=== PATIENT | female | born 1985 | race African-American/Black ===

== ENCOUNTER → 2017-10-10 | Outpatient (CLI) | payer OTHER ==
[2015-01-19 12:45] VITALS: BP 107/68
[~2017-10-10] MED LIST: DOXY100C2 PO; IBUP200T44 PO; ONDA4TAB10 SL
--- NOTE | 2017-10-10 16:01 | RAD ---
Abdomen, 2 views, 10/10/2017: History: Left-sided abdominal pain There is gas and stool scattered throughout the colon in a nonspecific pattern. No free air is seen in the abdomen. There is no evidence of organomegaly or abnormal abdominal calcification. IMPRESSION: No acute abdominal abnormality is detected.
== END | disposition home or self-care (01) ==
LOC: PMG 10:51
PROVIDERS: ATTEND Physician Assistant
DX: R10.32 Left lower quadrant pain (principal)
CPT/HCPCS: 74021

== ENCOUNTER → 2017-10-24 | Outpatient (CLI) | payer OTHER ==
[2015-01-19 12:45] VITALS: BP 107/68
--- NOTE | 2017-10-24 09:54 | RAD ---
Transabdominal and transvaginal sonography of the pelvis History: Intermittent left lower quadrant pain for 3 years. Transabdominal sonography: The uterus is anteverted in position. The longitudinal and AP and transverse dimensions of the uterus are 10.9 cm and 4.8 cm and 7.7 cm respectively. The endometrial canal is poorly visualized. Therefore, transvaginal sonography will be performed. The left ovary measures 1.8 cm and 2.8 cm and 3.2 cm in size and is normal. Color Doppler flow is seen within the left ovary. The right ovary measures 1.5 cm and 2.4 cm and 1.9 cm in size and is normal. No adnexal mass or free fluid is seen. Transvaginal sonography: No uterine mass or fibroid is seen. The endometrial canal measures 8 mm in thickness which is normal. The left ovary contains a 13 mm follicular cyst and is normal. The right ovary is normal. Color Doppler flow is seen within the right ovary. No adnexal mass or free fluid is evident. IMPRESSION: Normal pelvic sonogram.
== END | disposition home or self-care (01) ==
LOC: US 07:47
PROVIDERS: ATTEND Physician Assistant
DX: R10.32 Left lower quadrant pain (principal)
CPT/HCPCS: 76830; 76856

== ENCOUNTER 2020-12-02 17:30 | Emergency (ER) | payer BC, OTHER ==
[~2020-12-02] VITALS: Ht 170.2 cm; Wt 75.9 kg
[2020-12-02] MEDS ORDERED: IV NORMAL SALINE 1,000ML 1,000 ML IV ONE (18:00)
[2020-12-02 18:33] LABS: BARBITURATES NEG (NEG); BENZODIAZEPINES NEG (NEG); CANNABINOIDS NEG (NEG); COCAINE NEG (NEG); METHADONE NEG (NEG); OPIATES NEG (NEG); PHENCYCLIDINE NEG (NEG)
[2020-12-02 18:37] LABS: BASO % 1 % (0-3); EOS # 0.1 x10^3/uL (0.0-0.7); EOS % 1 % (0-3); HEMATOCRIT 36.9 % (36.0-47.0); HEMOGLOBIN 12.1 g/dL (12.0-15.5); LYMPH # 2.5 x10^3/uL (1.0-4.8); LYMPH % 46 % (24-48); MEAN CORPUSCULAR HEMOGLOBIN 28 pg (25-35); MEAN CORPUSCULAR HGB CONC 33 g/dL (31-37); MEAN CORPUSCULAR VOLUME 86 fL (79-100); MONO # 0.5 x10^3/uL (0.0-1.1); MONO % 9 % (0-9); NEUT # 2.3 x10^3uL (1.8-7.7); NEUT % 43 % (31-73); PLATELET COUNT 210 x10^3/uL (140-400); RED BLOOD COUNT 4.28 x10^6/uL (3.50-5.40); RED CELL DISTRIBUTION WIDTH 13.2 % (11.5-14.5); WHITE BLOOD COUNT 5.4 x10^3/uL (4.0-11.0)
[2020-12-02 18:37] LABS: BILIRUBIN,URINE NEG (NEG); CLARITY,URINE CLEAR; COLOR,URINE YELLOW; GLUCOSE,URINE NEG (NEG); NITRITE,URINE NEG (NEG); UROBILINOGEN,URINE 0.2 mg/dL (0.2 mg/dL)
[2020-12-02 18:38] LABS: BACTERIA,URINE 0 /HPF (0-FEW); WBC,URINE 0 /HPF (0-4)
[2020-12-02 18:39] LABS: AMPHETAMINE/METHAMPHETAMINE NEG (NEG)
[2020-12-02 18:45] LABS: CALCIUM 9.5 mg/dL (8.5-10.1); CREATININE 0.9 mg/dL (0.6-1.0); GFR 87.3
[2020-12-02 18:47] LABS: ALBUMIN 4.1 g/dL (3.4-5.0); ALBUMIN/GLOBULIN RATIO 1.1 (1.0-1.7); MAGNESIUM 1.9 mg/dL (1.8-2.4); PHOSPHORUS 3.4 mg/dL (2.6-4.7); TOTAL BILIRUBIN 0.2 mg/dL (0.2-1.0); TOTAL PROTEIN 7.7 g/dL (6.4-8.2)
[2020-12-02 19:17] VITALS: BP 127/68
--- NOTE | 2020-12-02 19:24 | PHYS DOC ---
Past History Past Medical History: No Pertinent History, Other (SHERRY PACK APRN) Past Surgical History: Other (SHERRY PACK APRN) Alcohol Use: None Drug Use: None, Marijuana (SHERRY PACK APRN) Adult General Chief Complaint Chief Complaint: Palpitations HPI HPI Patient is a 35-year-old female who presents to the emergency department complaining of feeling her heart fluttering been going on all day. Patient denies any chest pains, shortness of breath, congestion, fever or chills, cough, abdominal pain, nausea, vomiting, diarrhea. Patient denies any visual changes or headaches. Patient denies any allergies to medications, does not take any medications at home, states her last menstrual cycle ended yesterday with normal duration of flow. (SHERRY PACK APRN) Review of Systems Review of Systems 14 body systems of review of systems have been reviewed. See HPI for pertinent positives and negative responses, otherwise all other systems are negative, nonpertinent or noncontributory. (SHERRY PACK APRN) Current Medications Current Medications Current Medications Medications (Trade) Dose Ordered Sig/Dary Start Time Stop Time Status Last Admin Dose Admin Sodium Chloride 1,000 ml @ 1,000 mls/hr 1X ONCE 12/02/20 18:00 12/02/20 18:59 DC 12/02/20 18:00 1,000 MLS/HR (SHERRY PACK APRN) Allergies Allergies Allergies Coded Allergies Type Severity Reaction Last Updated Verified No Known Drug Allergies 06/27/14 No (SHERRY PACK APRN) Physical Exam Physical Exam Constitutional: Well developed, well nourished, no acute distress, non-toxic appearance. 35-year-old female in no apparent distress. HENT: Normocephalic, atraumatic, bilateral external ears normal, oropharynx moist, no oral exudates, nose normal. Oropharynx moist, pink, no infectious process appreciated, no uvular edema, no laryngeal edema appreciated, no lymphadenopathy of the head or neck appreciated. Eyes: PERRLA, EOMI, conjunctiva normal, no discharge. Neck: Normal range of motion, no tenderness, supple, no stridor. No meningismus signs, no nuchal rigidity appreciated. Cardiovascular:Heart rate regular rhythm, no murmur, heart sounds S1-S2 to auscultation. During physical exam the patient was attached to 5-lead cardiac cath rn, it was noted patient had occasional PVCs during this time, patient would state "there it is "when a PVC would happen. Otherwise the patient did not complain of heart fluttering. Lungs & Thorax: Bilateral breath sounds clear to auscultation all lung spring, no adventitious lung sounds appreciated. Abdomen: Bowel sounds normal, soft, no tenderness, no masses, no pulsatile masses. Skin: Warm, dry, no erythema, no rash. Back: No tenderness, no CVA tenderness. Extremities: No tenderness, no cyanosis, no clubbing, ROM intact, no edema. Neurologic: Alert and oriented X 3, normal motor function, normal sensory function, no focal deficits noted. Psychologic: Affect normal, judgement normal, mood normal. (SHERRY PACK APRN) Current Patient Data Vital Signs Vital Signs Date Time Temp Pulse Resp B/P (MAP) Pulse Ox O2 Delivery O2 Flow Rate FiO2 12/02/20 17:36 97.8 86 16 132/84 (100) 100 Room Air Lab Results Laboratory Tests Test 12/02/20 17:56 12/02/20 18:02 White Blood Count 5.4 x10^3/uL (4.0-11.0) Red Blood Count 4.28 x10^6/uL (3.50-5.40) Hemoglobin 12.1 g/dL (12.0-15.5) Hematocrit 36.9 % (36.0-47.0) Mean Corpuscular Volume 86 fL (79-100) Mean Corpuscular Hemoglobin 28 pg (25-35) Mean Corpuscular Hemoglobin Concent 33 g/dL (31-37) Red Cell Distribution Width 13.2 % (11.5-14.5) Platelet Count 210 x10^3/uL (140-400) Neutrophils (%) (Auto) 43 % (31-73) Lymphocytes (%) (Auto) 46 % (24-48) Monocytes (%) (Auto) 9 % (0-9) Eosinophils (%) (Auto) 1 % (0-3) Basophils (%) (Auto) 1 % (0-3) Neutrophils # (Auto) 2.3 x10^3uL (1.8-7.7) Lymphocytes # (Auto) 2.5 x10^3/uL (1.0-4.8) Monocytes # (Auto) 0.5 x10^3/uL (0.0-1.1) Eosinophils # (Auto) 0.1 x10^3/uL (0.0-0.7) Basophils # (Auto) 0.0 x10^3/uL (0.0-0.2) Sodium Level 141 mmol/L (136-145) Potassium Level 4.0 mmol/L (3.5-5.1) Chloride Level 105 mmol/L (98-107) Carbon Dioxide Level 27 mmol/L (21-32) Anion Gap 9 (6-14) Blood Urea Nitrogen 19 mg/dL (7-20) Creatinine 0.9 mg/dL (0.6-1.0) Estimated GFR (Cockcroft-Gault) 87.3 BUN/Creatinine Ratio 21 (6-20) H Glucose Level 94 mg/dL (70-99) Calcium Level 9.5 mg/dL (8.5-10.1) Phosphorus Level 3.4 mg/dL (2.6-4.7) Magnesium Level 1.9 mg/dL (1.8-2.4) Total Bilirubin 0.2 mg/dL (0.2-1.0) Aspartate Amino Transferase (AST) 25 U/L (15-37) Alanine Aminotransferase (ALT) 32 U/L (14-59) Alkaline Phosphatase 44 U/L (46-116) L Troponin I Quantitative < 0.017 ng/mL (0-0.055) Total Protein 7.7 g/dL (6.4-8.2) Albumin 4.1 g/dL (3.4-5.0) Albumin/Globulin Ratio 1.1 (1.0-1.7) Urine Collection Type Unknown Urine Color Yellow Urine Clarity Clear Urine pH 6.0 Urine Specific [place] >=1.030 Urine Protein Neg (NEG-TRACE) Urine Glucose (UA) Neg mg/dL (NEG) Urine Ketones (Stick) Trace mg/dL (NEG) Urine Blood Mod (NEG) Urine Nitrite Neg (NEG) Urine Bilirubin Neg (NEG) Urine Urobilinogen Dipstick 0.2 mg/dL (0.2 mg/dL) Urine Leukocyte Esterase Neg (NEG) Urine RBC 6-10 /HPF (0-2) Urine WBC 0 /HPF (0-4) Urine Squamous Epithelial Cells None /LPF Urine Bacteria 0 /HPF (0-FEW) Urine Opiates Screen Neg (NEG) Urine Methadone Screen Neg (NEG) Urine Barbiturates Neg (NEG) Urine Phencyclidine Screen Neg (NEG) Urine Amphetamine/Methamphetamine Neg (NEG) Urine Benzodiazepines Screen Neg (NEG) Urine Cocaine Screen Neg (NEG) Urine Cannabinoids Screen Neg (NEG) Urine Ethyl Alcohol Neg (NEG) (SHERRY PACK APRN) EKG EKG EKG performed at 1735 by house respiratory therapy staff shows a normal sinus rhythm without ectopy, heart rate 97 bpm, [place] interval 0.136, QTc interval 0.441, no STEMI, ACS, or acute ischemia appreciated, EKG interpreted by ED attending physician Dr. Bueno. (SHERRY PACK APRN) Radiology/Procedures Radiology/Procedures [] (SHERRY PACK APRN) Heart Score C/O Chest Pain: No Risk Factors: Risk Factors: DM, Current or recent (<one month) smoker, HTN, HLP, family history of CAD, obesity. Risk Scores: Risk Factors: DM, Current or recent (<one month) smoker, HTN, HLP, family history of CAD, obesity. (SHERRY PACK APRN) Course & Med Decision Making Course & Med Decision Making Pertinent Labs and Imaging studies reviewed. (See chart for details) 35-year-old female, vital signs reviewed, presents emergency department concerning heart fluttering. Patient's physical examination was unremarkable, will perform EKG, troponin lab, CBC, BMP, urinalysis assay, urine drug screen. Patient's labs were unremarkable, EKG was unremarkable, it was noted during EKG monitoring of patient, patient would feel this fluttering sensation when a PVC would exacerbate. Patient had occasional rare PVCs. Discussed findings with patient, follow-up with primary care for ongoing investigation of her PVCs. Patient gave verbal understanding of discharge home instructions, follow-up with primary care soon, return to ER precautions or concerns, patient felt comfortable going home and was discharged to home without incident. (SHERRY PACK APRN) Dragon Disclaimer Dragon Disclaimer This electronic medical record was generated, in whole or in part, using a voice recognition dictation system. (SHERRY PACK APRN) Attending Co-Sign The chart was reviewed. The case was discussed. Agree with the plan of care. (GHASSAN BUENO DO) Departure Departure: Impression: Primary Impression: Periodic heart flutter Disposition: 01 HOME / SELF CARE / HOMELESS Condition: GOOD Referrals: VANESSA AMBRIZ (PCP) Additional Instructions: We have discussed your heart fluttering, please follow-up with YOSI Flores for ongoing investigation of your premature ventricular contractions. We have discussed at length about premature ventricular contractions, often they are benign, but you should follow-up with your primary care provider and discuss possible cardiology consult. Please return to the emergency department for worsening symptoms or other concerns. EMERGENCY DEPARTMENT GENERAL DISCHARGE INSTRUCTIONS Thank you for coming to [facility] (ED) today and trusting us with you care. We trust that you had a positivie experience in our Emergency Department. If you wish to speak to the department management, you may call the director at [phone]. YOUR FOLLOW UP INSTRUCTIONS ARE FOLLOWS: 1. Do you have a private Doctor? If you do not have a private doctor, please ask for a resource list of physicians or clinics that may be able to assist you with follow up care. 2. The Emergency Physician has interpreted your x-rays. The X-Ray specialist will also review them. If there is a change in the findings, you will be notified in 48 hours when at all possible. 3. A lab test or culture has been done, your results will be reviewed and you will be notified if you need a change in treatment. ADDITIONAL INSTRUCTIONS AND INFORMATION: 1. Your care today has been supervised by a physician who is specially trained in emergency care. Many problems require more than one evaluation for a complete diagnosis and treatment. We recommend that you schedule your follow up appointment as recommended to ensure complete treatment of you illness or injury. If you are unable to obtain follow up care and continue to have a problem, or if your condition worsens, we recommend that you return to the ED. 2. We are not able to safely determine your condition over the phone nor are we able to give sound medical advice over the phone. For these safety reasons, if you call for medical advice we will ask you to come to the ED for further evaluation. 3. If you have any questions regarding these discharge instructions please call the ED at [phone]. SAFETY INFORMATION: In the interest of safety, wellness, and injury prevention; we encourage you to wear your sealbelt, if you smoke; quite smoking, and we encourage family to use a pr otective helmet for bicycling and other sporting events that present an increased risk for head injury. IF YOUR SYMPTOMS WORSEN OR NEW SYMPTOMS DEVELOP, OR YOU HAVE CONCERNS ABOUT YOUR CONDITION; OR IF YOUR CONDITION WORSENS WHILE YOU ARE WAITING FOR YOUR FOLLOW UP APPOINTMENT; EITHER CONTACT YOUR PRIMARY CARE DOCTOR, THE PHYSICIAN WHOSE NAME AND NUMBER YOU WERE GIVEN, OR RETURN TO THE ED IMMEDIATELY. SHERRY PACK APRN Dec 02, 2020 19:24 GHASSAN BUENO DO Dec 03, 2020 04:36
--- NOTE | 2020-12-03 06:27 | EKG ---
[address] [address] Test Date: 2020-12-02 Test Time: 17:35:06 Pat Name: TERRI BREWSTER Department: Room: Gender: F Business Office Technician: LORIE : 1985 Requested By: DEPARTMENT EMERGENCY Order Number: [id number] Reading MD: Measurements Intervals [place] Rate: 97 P: 45 IN: 136 QRS: 2 QRSD: 76 T: 14 QT: 344 QTc: 441 Interpretive Statements SINUS RHYTHM LEFT ATRIAL ABNORMALITY INCOMPLETE RIGHT BUNDLE BRANCH BLOCK ABNORMAL ECG RI6.02 No previous ECG available for comparison
== END 2020-12-02 19:30 | disposition home or self-care (01) ==
LOC: ER 17:30
DX: I49.8 Other specified cardiac arrhythmias (principal)
CPT/HCPCS: 36415; 80053; 80307; 81001; 83735; 84100; 84484; 85025; 93005; 96360; 99284; J7030

== ENCOUNTER → 2020-12-24 | Outpatient (CLI) | payer BC ==
[2020-12-02 19:17] VITALS: BP 127/68
--- NOTE | 2020-12-24 09:45 | RAD ---
Limited ultrasound evaluation of the soft tissues of the neck 12/24/2020 INDICATION: Neck swelling, x1 year COMPARISON STUDY: None Discussion: Limited ultrasound evaluation of the soft tissues of the neck was performed. Static image s are submitted to PACS. No focal mass is identified. No abnormal fluid collections are seen. Grossly unremarkable vascular structures noted. No ultrasound correlate to the area palpable abnormality as indicated by the patient was identified. IMPRESSION: No identifiable sonographic correlate to the area of palpable abnormality as indicated by the patient. Electronically signed by: Nader Wilkinson MD (12/24/2020 9:43 AM) [id number]
== END ==
LOC: US 07:48
PROVIDERS: ATTEND Physician Assistant Medical
DX: R22.1 Localized swelling, mass and lump, neck (principal)
CPT/HCPCS: 76536